=== PATIENT | female | born 1950 ===

== ENCOUNTER 2017-09-16 06:35 | Day surgery (SDC) | payer OTHER ==
[~2017-09-16 06:35] MED LIST: BACLOFEN10 MG PO; DICLOFENAC POTA50 MG PO; GABAPENTIN600 MG PO; LEVO-T100 MCG PO; LOSARTAN POTAS100 MG PO; METFORMIN HCL500 MG PO; PROTONIX40 MG PO; SIMVASTATIN40 MG PO; TIZANIDINE HCL4 M1 PO
== END 2017-09-16 15:00 | disposition home or self-care (01) ==
LOC: CIR.AMB 06:35
DX: S63.32 Traumatic rupture of radiocarpal ligament (principal)